=== PATIENT | male | born 1995 | race Asian ===

== ENCOUNTER 2019-01-31 10:18 | Emergency (ER) | payer OTHER ==
[~2019-01-31] VITALS: Ht 172.7 cm; Wt 69.1 kg
[2019-01-31] MEDS ORDERED: NS 1,000 ML IV ONE (11:15)
[2019-01-31] MEDS ORDERED: ONDANSETRON 4MG/2ML VIAL (J2405) IV ONE (11:15)
[2019-01-31 11:49] LABS: BASO # 0.1 10^3/uL (0.0-0.2); BASO % 1.4 % (0.0-1.0); EOS # 0.1 10^3/uL (0.0-0.50); EOS % 0.9 % (0.0-3.0); HEMATOCRIT 40.8 % (42.0-52.0); HEMOGLOBIN 12.4 g/dl (13.5-17.5); LYMPH # 1.4 10^3/uL (1.5-6.5); LYMPH % 24.4 % (24.0-44.0); MEAN CORPUSCULAR HEMOGLOBIN 20.8 pg (27.0-33.0); MEAN CORPUSCULAR HGB CONC 30.4 g/dl (32.0-36.5); MEAN CORPUSCULAR VOLUME 68.6 fl (80.0-96.0); MONO # 0.4 10^3/uL (0.0-0.8); MONO % 7.7 % (0.0-5.0); NEUTROPHILS # 3.7 10^3/uL (1.8-7.7); NEUTROPHILS % 64.9 % (36.0-66.0); PLATELET COUNT, AUTOMATED 285 10^3/uL (150-450); RED BLOOD COUNT 5.95 10^6/uL (4.30-6.10); WHITE BLOOD COUNT 5.7 10^3/uL (4.0-10.0)
[2019-01-31 12:19] LABS: ALBUMIN 4.3 GM/DL (3.2-5.2); ALT/SGPT 29 U/L (12-78); BILIRUBIN,DIRECT 0.2 MG/DL (0.0-0.2); BILIRUBIN,TOTAL 0.7 MG/DL (0.2-1.0); BLOOD UREA NITROGEN 15 MG/DL (7-18); CALCIUM LEVEL 9.2 MG/DL (8.5-10.1); CARBON DIOXIDE LEVEL 31 MEQ/L (21-32); CHLORIDE LEVEL 104 MEQ/L (98-107); CREATININE FOR GFR 0.88 MG/DL (0.70-1.30); GLOMERULAR FILTRATION RATE > 60.0 (>60); GLUCOSE, FASTING 97 MG/DL (70-100); LIPASE 495 U/L (73-393); POTASSIUM SERUM 3.9 MEQ/L (3.5-5.1); SODIUM LEVEL 138 MEQ/L (136-145); TOTAL PROTEIN 7.4 GM/DL (6.4-8.2)
[2019-01-31 12:24] LABS: APPEARANCE, URINE CLEAR (CLEAR); BACTERIA, URINE AUTO NEGATIVE (NEGATIVE); BILIRUBIN, URINE AUTO NEGATIVE (NEGATIVE); BLOOD, URINE BLOOD NEGATIVE (NEGATIVE); COLOR, URINE STRAW (YELLOW); GLUCOSE, URINE (UA) AUTO NEGATIVE (NEGATIVE); KETONE, URINE AUTO NEGATIVE (NEGATIVE); LEUKOCYTE ESTERASE, URINE AUTO NEGATIVE (NEGATIVE); MUCUS, URINE SMALL (NEGATIVE); NITRITE, URINE AUTO NEGATIVE (NEGATIVE); PROTEIN, URINE AUTO NEGATIVE (NEGATIVE); RBC, URINE AUTO 0 /HPF (0-3); SQUAMOUS EPITHELIAL CELL UR AU 0 /HPF (0-6); UROBILINOGEN, URINE AUTO 0.2 mg/dL (0.0-2.0); WBC, URINE AUTO 0 /HPF (0-3)
[2019-01-31] MEDS ORDERED: ISOVUE-370 76% 100ML VIAL (Q9967) As Ordered ONE (12:42)
[2019-01-31] MEDS ORDERED: ONDA4TAB6 PO (13:58)
[2019-01-31 14:13] VITALS: BP 121/75
--- NOTE | 2019-01-31 14:34 | REP ---
CT abdomen and pelvis with IV but without oral contrast: History: Epigastric pain. Elevated lipase. CT contrast dose: 100 mL of intravenous Isovue 370. 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 The lung bases are clear on axial CT images. The liver and the spleen are normal in size and homogeneous in texture. No adrenal lesion is seen. Kidneys enhance symmetrically. There is an extrarenal pelvis configuration bilaterally. No hydronephrosis is seen. No urinary tract calculus is appreciated. No abnormality is noted in the pancreas or in the gallbladder. No retroperitoneal mass or adenopathy is seen. Small and large bowel loops are normal in the abdomen and pelvis. Normal appendix is seen in the right lower quadrant. No abdominal wall defect is observed. Seminal vesicles, prostate and urinary bladder are unremarkable. Impression: Negative CT study abdomen and pelvis. No acute abnormality. This does not preclude the diagnosis of pancreatitis. Electronically Signed by Pedro Campbell MD 01/31/2019 05:32 P
== END 2019-01-31 14:22 | disposition home or self-care (01) ==
LOC: M ED 10:18
DX: R74.8 Abnormal levels of other serum enzymes (principal); R19.7 Diarrhea, unspecified; R10.9 Unspecified abdominal pain
CPT/HCPCS: 74177; 80048; 80076; 81001; 83690; 85025; 99284; J2405; Q9967

== ENCOUNTER 2019-02-13 20:36 | Emergency (ER) | payer OTHER ==
[~2019-02-13] VITALS: Ht 172.7 cm; Wt 70.9 kg
[~2019-02-13 20:36] MED LIST: ONDA4TAB6 PO
[2019-02-13] MEDS ORDERED: METOCLOPRAMIDE 10 MG TAB PO ONE (21:15)
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
[2019-02-13] MEDS ORDERED: REGL10TA6 PO (22:07)
[2019-02-13] MEDS ORDERED: IBUP-1022 PO (22:07)
[2019-02-13 22:13] VITALS: BP 132/70
== END 2019-02-13 22:15 | disposition home or self-care (01) ==
LOC: M ED 20:36
DX: F07.81 Postconcussional syndrome (principal); S00.03XA Contusion of scalp, initial encounter; S00.01XA Abrasion of scalp, initial encounter; W19.XXXA Unspecified fall, initial encounter; Y92.89 Other specified places as the place of occurrence of the external cause; Y93.9 Activity, unspecified; Y99.1 Military activity; Z72.0 Tobacco use